=== PATIENT | male | born 1965 | race Caucasian/White ===

== ENCOUNTER → 2018-12-09 | Day surgery (SDC) | payer BC ==
[~2018-12-09] MED LIST: Lactated Ringers 1,000 ML IV SCH; Propofol 200 MG/20 ML SDV IV ONE; Simethicone Drops 40 MG/0.6 ML 30 ML Bottle ONE
--- NOTE | 2018-12-09 09:52 | PCM.OPNOTE ---
- General Post-Op/Procedure Note Date of Surgery/Procedure: 12/09/18 Operative Procedure(s): c scope Findings: normal Pre Op Diagnosis: colon cancer screening Post-Op Diagnosis: nl exam Anesthesia Technique: MAC Primary Surgeon: Srinath Schneider Anesthesia Provider: Kelvin Schaffer Pathology: none Complications: None Condition: Good Free Text/Narrative:: see dictation
--- NOTE | 2018-12-09 10:28 | OR ---
DATE OF OPERATION: 12/09/2018 SURGEON: Srinath Schneider MD PROCEDURE PERFORMED: Colonoscopy. PREOPERATIVE DIAGNOSIS: Need for colon cancer screening. POSTOPERATIVE DIAGNOSIS: Normal colon. INDICATIONS FOR PROCEDURE: This is a 53-year-old white male who presents for his initial screening colonoscopy. He was offered and accepted the same. DESCRIPTION OF OPERATION: After an excellent IV sedation was administered, digital rectal exam was performed. No marked abnormality was noted. Flexible colonoscope was inserted and advanced to the cecum without difficulty. The prep was excellent. The following findings were noted. Ascending colon, unremarkable. Transverse colon, unremarkable. Descending colon, unremarkable. Sigmoid and rectum, unremarkable. Colon was deflated as the scope was removed. The patient tolerated the procedure well, was taken to recovery in good condition. RECOMMENDATIONS: Repeat colonoscopy in 10 years. /[id number] /MODL
== END | disposition home or self-care (01) ==
LOC: FB.SDS 07:54
PROVIDERS: ATTEND Surgery
DX: Z12.11 Encounter for screening for malignant neoplasm of colon (principal); I10 Essential (primary) hypertension; E78.5 Hyperlipidemia, unspecified; F33.1 Major depressive disorder, recurrent, moderate; Z88.8 Allergy status to other drugs, medicaments and biological substances
CPT/HCPCS: 45378; A9270; J2704; J7120